=== PATIENT | female | born 1950 | race Caucasian/White ===

== ENCOUNTER 2019-03-01 13:34 | Observation (INO) | payer MEDICARE ==
[2019-03-01] VITALS (18 sets, daily range): BP systolic 103–152; BP diastolic 58–93
[~2019-03-01] VITALS: Ht 177.8 cm; Wt 80.0 kg
[2019-03-01] MEDS ORDERED: simethicone 80mg chew tab PO ONE (14:00)
[2019-03-01] MEDS: diatr meglu/diatrizoate 30ml oral sol.-(3 dose) bottle PO SCH ×2 (14:21→14:45)
[2019-03-01 14:25] LABS: BASOPHILS % (AUTO) 0.3 % (0-1); EOSINOPHILS % (AUTO) 0.3 % (0-6); HEMATOCRIT 42.7 % (35.0-45.0); HEMOGLOBIN 14.4 g/dl (12.0-16.0); LYMPHOCYTES # (AUTO) 0.9 X10'3 (1.1-4.8); LYMPHOCYTES % (AUTO) 8.4 % (21-51); MEAN CORPUSCULAR HEMOGLOBIN 32.8 PG (27.0-31.0); MEAN CORPUSCULAR HGB CONC 33.8 g/dL (33.0-36.5); MEAN PLATELET VOLUME 7.4 FL (7.4-10.4); MONOCYTES # (AUTO) 0.5 X10'3 (0-0.9); MONOCYTES % (AUTO) 4.4 % (2-12); NEUTROPHILS % (AUTO) 86.6 % (42-75); PLATELET COUNT 173 X10'3 (140-440); RED CELL DISTRIBUTION WIDTH 13.4 % (11.5-14.5); WHITE BLOOD COUNT 10.4 X10'3 (4.5-11.0)
[2019-03-01 14:34] LABS: ALANINE AMINOTRANSFERASE 35 U/L (12-78); ALBUMIN 3.9 G/DL (3.4-5.0); ALBUMIN/GLOBULIN RATIO 1.2 (1.1-1.5); ALKALINE PHOSPHATASE 62 IU/L (46-116); ANION GAP 10 (8-16); ASPARTATE AMINO TRANSFERASE 30 U/L (10-37); BLOOD UREA NITROGEN 26 MG/DL (7-18); CHLORIDE 106 MMOL/L (99-107); CREATININE 1.04 MG/DL (0.40-0.90); GLUCOSE 113 MG/DL (70-104); LIPASE 123 U/L (73-393); POTASSIUM 3.6 MMOL/L (3.5-5.1); SODIUM 142 MMOL/L (135-145); TOTAL PROTEIN 7.2 G/DL (6.4-8.2); eGFR 52 ML/MIN
[2019-03-01] MEDS ORDERED: ondansetron/PF 4mg/2ml inj IV ONE (14:35)
[2019-03-01] MEDS ORDERED: normal saline 1000ML IV soln IVB ONE (14:35)
[2019-03-01 15:41] LABS: CLARITY,URINE CLEAR (Clear); COLOR,URINE STRAW (Yellow); GLUCOSE, URINE NEGATIVE (Neg); KETONES,URINE 40 mg/dl (Neg); LEUKOCYTE ESTERASE ,URINE NEGATIVE (Neg); NITRITES, URINE NEGATIVE (Neg); OCCULT BLOOD,URINE TRACE-INTACT (Neg); PROTEIN,URINE NEGATIVE (Neg); UROBILINOGEN,URINE 0.2 E.U/dL (0.2-1.0)
[2019-03-01 15:48] LABS: UA COLLECTION TYPE VOIDED
[2019-03-01 15:50] LABS: BACTERIA,URINE 1+ /HPF (Neg); MUCUS STRANDS FEW /LPF (Neg); RBC,URINE 0-2 /HPF (0-2); SQUAMOUS EPITHELIAL CELL,UR FEW /LPF (FEW); WBC,URINE 0-4 /HPF (0-4)
[2019-03-01] MEDS ORDERED: iohexol 300mg/ml 100ml inj. ONE (16:06)
[2019-03-01] MEDS: morphine 4 MG/ML inj SYRINge IV PRN ×2 (16:37→20:50)
[2019-03-01] MEDS: piperacillin/tazo 4.5gm/100ml 100 ML IV SCH (16:55)
[2019-03-01] MEDS ORDERED: LEVO50TA8 PO (17:06)
[2019-03-01] MEDS ORDERED: IBUP-1594 PO (17:08)
[2019-03-01] MEDS ORDERED: ACET-75 PO (17:08)
[2019-03-01] MEDS ORDERED: BUPIVAcaine/PF 2.5 mg/ml (0.25%) 30ml vial ONE (17:34)
[2019-03-01] MEDS ORDERED: ringers solution, lacted 1,000 ML IV SCH (17:51)
[2019-03-01] MEDS ORDERED: HYDROmorphone inj. 0.5 MG/0.5 ML DISP.SYRIN IV PRN (17:55)
[2019-03-01] MEDS ORDERED: ondansetron/PF 4mg/2ml inj IV PRN ×2 (17:55→20:15)
[2019-03-01] MEDS ORDERED: morphine 4 MG/ML inj SYRINge IV PRN (17:55)
[2019-03-01] MEDS ORDERED: fentaNYL/PF 50MCG/1 ML 2ML syringe ONE (18:03)
--- NOTE | 2019-03-01 18:40 | NUR ---
Received from OR via BED, accompanied by Anesthesiologist DR ORDONEZ and report given by Anesthesiologist. PT DROWSY, NO S/S OF DISTRESS/DISCOMFORT, ABDOMEN W/3 LAP SITES W/BANDAIDS CDI. Addendum: 03/01/19 at 1926 by Francisca Littlejohn RN Amended: Links added.
[2019-03-01] MEDS ORDERED: propofol inj 20 ML IV ONE (18:52)
[2019-03-01] MEDS ORDERED: LIDOcaine 2% (20mg/ml) 5ml vial ONE (18:52)
[2019-03-01] MEDS ORDERED: ondansetron/PF 4mg/2ml inj ONE (18:52)
[2019-03-01] MEDS ORDERED: neostigmine methylsulfate 1 MG/ML 10ml vial ONE (18:52)
[2019-03-01] MEDS: HYDROmorphone inj. 0.5 MG/0.5 ML DISP.SYRIN IV PRN ×3 (19:38→20:51)
[2019-03-01] MEDS ORDERED: magnesium 4gm in 100ml NS 100 ML IV PRN (20:15)
[2019-03-01] MEDS ORDERED: mag hydrox/Alum hydrox/simeth 30ml oral suspension PO PRN (20:15)
[2019-03-01] MEDS ORDERED: potassium CL 10mEq/100ml bag 100 ML IV PRN ×2 (20:15)
[2019-03-01] MEDS ORDERED: magnesium 2GM in 50ml NS 50 ML IV PRN (20:15)
[2019-03-01] MEDS ORDERED: potassium Cl 20 mEq SR tablet PO PRN ×2 (20:15)
[2019-03-01] MEDS ORDERED: morphine 2 MG/ML inj. syringe IV PRN (20:15)
--- NOTE | 2019-03-01 20:30 | NUR ---
Report called to receiving nurse. Transferred via BED, 1 BAG OF PERSONAL Belongings SENT W/PT TO ROOM 353A, NURSES AIDE AT BEDSIDE TO RECEIVE PT, BLL, CALL LIGHT GIVEN, SIDE RAILS UP X 2, PT ORIENTED TO ROOM AND SAFETY. Special Issues communicated to receiving nurse. YES. Addendum: 03/01/19 at 2136 by Francisca Littlejohn RN Amended: Links added.
[2019-03-01] MEDS: normal saline 1000ml 1,000 ML IV SCH (21:04)
[2019-03-02] VITALS: BP 116/67
[2019-03-02] MEDS: piperacillin/tazo 4.5gm/100ml 100 ML IV SCH ×4 (00:27→23:36)
[2019-03-02 00:30] VITALS: BP 107/58
[2019-03-02] MEDS: normal saline 1000ml 1,000 ML IV SCH ×2 (06:14→17:14)
[2019-03-02 06:27] LABS: ALANINE AMINOTRANSFERASE 37 U/L (12-78); ALBUMIN/GLOBULIN RATIO 0.9 (1.1-1.5); ALKALINE PHOSPHATASE 52 IU/L (46-116); ANION GAP 9 (8-16); ASPARTATE AMINO TRANSFERASE 31 U/L (10-37); BILIRUBIN,TOTAL 0.8 MG/DL (0.1-1.0); BLOOD UREA NITROGEN 16 MG/DL (7-18); BUN/CREATININE RATIO 16.7 (6.6-38.0); CALCIUM 8.6 MG/DL (8.5-10.1); CHLORIDE 106 MMOL/L (99-107); CREATININE 0.96 MG/DL (0.40-0.90); GLUCOSE 155 MG/DL (70-104); MAGNESIUM 1.8 MG/DL (1.5-2.4); POTASSIUM 4.2 MMOL/L (3.5-5.1); SODIUM 139 MMOL/L (135-145); TOTAL CARBON DIOXIDE 23.9 MMOL/L (24-32); TOTAL PROTEIN 6.3 G/DL (6.4-8.2); eGFR 57 ML/MIN
[2019-03-02 06:28] LABS: BASOPHILS % (AUTO) 0.1 % (0-1); EOSINOPHILS % (AUTO) 0 % (0-6); HEMATOCRIT 37.5 % (35.0-45.0); LYMPHOCYTES # (AUTO) 0.6 X10'3 (1.1-4.8); LYMPHOCYTES % (AUTO) 5.9 % (21-51); MEAN CORPUSCULAR HEMOGLOBIN 33.8 PG (27.0-31.0); MEAN CORPUSCULAR HGB CONC 34.7 g/dL (33.0-36.5); MEAN CORPUSCULAR VOLUME 97.3 FL (78-98); MEAN PLATELET VOLUME 7.6 FL (7.4-10.4); MONOCYTES # (AUTO) 0.3 X10'3 (0-0.9); MONOCYTES % (AUTO) 2.5 % (2-12); NEUTROPHILS % (AUTO) 91.5 % (42-75); PLATELET COUNT 151 X10'3 (140-440); RED BLOOD COUNT 3.86 X10'6 (4.20-5.60); RED CELL DISTRIBUTION WIDTH 13.2 % (11.5-14.5)
--- NOTE | 2019-03-02 06:31 | NUR ---
Problems reprioritized. Patient report given, questions answered & plan of care reviewed with Frida YARBROUGH. Addendum: 03/02/19 at 0631 by Latasha Hargrove RN Amended: Links added.
--- NOTE | 2019-03-02 06:37 | NUR ---
Patient in room [facility]. I have received report from ZENON Pagan and had the opportunity to ask questions and assume patient care.
[2019-03-02] MEDS: levoTHYROXINE 25mcg tablet PO SCH (07:52)
[2019-03-02] MEDS: lactobacillus rhamnosus 10,000 MMU CELLS/CAPSULE PO SCH ×2 (07:52→19:10)
[2019-03-02] MEDS: enoxaparin 40mg/0.4ml syringe SQ SCH (07:53)
[2019-03-02 08:00] VITALS: BP 82/52
[2019-03-02] MEDS: K and/or MAG REPLACEMENT MC SCH (08:00)
[2019-03-02] MEDS: morphine 2 MG/ML inj. syringe IV PRN ×3 (09:33→19:10)
[2019-03-02] MEDS ORDERED: HYDROcodone/acetaminophen 5mg/325mg tablet PO PRN (10:45)
[2019-03-02 11:00] VITALS: BP 105/53
[2019-03-02 18:00] VITALS: BP 102/50
--- NOTE | 2019-03-02 18:18 | NUR ---
Problems reprioritized. Patient report given, questions answered & plan of care reviewed with ZENON DE LA TORRE.
--- NOTE | 2019-03-02 18:19 | NUR ---
Patient in room [facility]. I have received report from ZENON Galicia and had the opportunity to ask questions and assume patient care.
[2019-03-03] VITALS: BP 103/45
[2019-03-03] MEDS: normal saline 1000ml 1,000 ML IV SCH (02:25)
--- NOTE | 2019-03-03 06:33 | NUR ---
Problems reprioritized. Patient report given, questions answered & plan of care reviewed with ZENON Tolbert.
--- NOTE | 2019-03-03 06:35 | NUR ---
Patient in room [facility]. I have received report from ZENON Rich and had the opportunity to ask questions and assume patient care.
[2019-03-03 06:39] LABS: ALANINE AMINOTRANSFERASE 61 U/L (12-78); ALBUMIN 2.7 G/DL (3.4-5.0); ALBUMIN/GLOBULIN RATIO 0.9 (1.1-1.5); ALKALINE PHOSPHATASE 46 IU/L (46-116); ANION GAP 7 (8-16); ASPARTATE AMINO TRANSFERASE 51 U/L (10-37); BILIRUBIN,TOTAL 0.6 MG/DL (0.1-1.0); BLOOD UREA NITROGEN 14 MG/DL (7-18); BUN/CREATININE RATIO 13.3 (6.6-38.0); CALCIUM 8.5 MG/DL (8.5-10.1); CHLORIDE 112 MMOL/L (99-107); CREATININE 1.05 MG/DL (0.40-0.90); GLUCOSE 105 MG/DL (70-104); POTASSIUM 3.7 MMOL/L (3.5-5.1); SODIUM 146 MMOL/L (135-145); TOTAL CARBON DIOXIDE 27.2 MMOL/L (24-32); TOTAL PROTEIN 5.8 G/DL (6.4-8.2); eGFR 52 ML/MIN
[2019-03-03 06:52] LABS: BASOPHILS % (AUTO) 0.2 % (0-1); EOSINOPHILS # (AUTO) 0.1 X10'3 (0-0.9); EOSINOPHILS % (AUTO) 1.4 % (0-6); HEMATOCRIT 35.2 % (35.0-45.0); HEMOGLOBIN 11.9 g/dl (12.0-16.0); LYMPHOCYTES # (AUTO) 1.8 X10'3 (1.1-4.8); LYMPHOCYTES % (AUTO) 27.7 % (21-51); MEAN CORPUSCULAR HEMOGLOBIN 33.1 PG (27.0-31.0); MEAN CORPUSCULAR HGB CONC 33.7 g/dL (33.0-36.5); MEAN CORPUSCULAR VOLUME 98.2 FL (78-98); MEAN PLATELET VOLUME 7.8 FL (7.4-10.4); MONOCYTES # (AUTO) 0.4 X10'3 (0-0.9); MONOCYTES % (AUTO) 6.2 % (2-12); NEUTROPHILS # (AUTO) 4.1 X10'3 (1.8-7.7); NEUTROPHILS % (AUTO) 64.5 % (42-75); PLATELET COUNT 144 X10'3 (140-440); RED BLOOD COUNT 3.59 X10'6 (4.20-5.60); RED CELL DISTRIBUTION WIDTH 13.3 % (11.5-14.5); WHITE BLOOD COUNT 6.4 X10'3 (4.5-11.0)
[2019-03-03] MEDS: enoxaparin 40mg/0.4ml syringe SQ SCH (07:21)
[2019-03-03] MEDS: levoTHYROXINE 25mcg tablet PO SCH (07:21)
[2019-03-03] MEDS: piperacillin/tazo 4.5gm/100ml 100 ML IV SCH (07:21)
[2019-03-03] MEDS: lactobacillus rhamnosus 10,000 MMU CELLS/CAPSULE PO SCH (07:21)
[2019-03-03] MEDS: morphine 2 MG/ML inj. syringe IV PRN (07:39)
[2019-03-03 08:00] VITALS: BP 103/46
[2019-03-03] MEDS: K and/or MAG REPLACEMENT MC SCH (08:00)
[2019-03-03] MEDS ORDERED: OXYC-658 PO (09:50)
[2019-03-03 12:00] VITALS: BP 120/59
== END 2019-03-03 12:20 | disposition home or self-care (01) ==
LOC: ER 13:35 → SUR 3N 19:48
PROVIDERS: ADMIT Surgery; ATTEND Surgery
DX: K35.80 Unspecified acute appendicitis (principal); E03.9 Hypothyroidism, unspecified; F03.90 Unspecified dementia, unspecified severity, without behavioral disturbance, psychotic disturbance, mood disturbance, and anxiety; E66.9 Obesity, unspecified; Z90.710 Acquired absence of both cervix and uterus; Z68.25 Body mass index [BMI] 25.0-25.9, adult
CPT/HCPCS: 36415; 44970; 70450; 74177; 80053; 81001; 83690; 83735; 85025; 87081; 93005; 96361; 96365; 96366; 96372; 96375; 96376; 99284; G0378; J1170; J2001; J2270; J2405; J2543; J2704; J2710; J3010; J3490; J7030; J7120; Q9963; Q9967; 88304; A4215; A4618; A7000; J1650